=== PATIENT | female | born 1990 | race Caucasian/White ===

== ENCOUNTER 2019-03-07 11:01 | Emergency (ER) | payer BC, OTHER ==
[~2019-03-07] VITALS: Ht 157.5 cm; Wt 69.4 kg
[2019-03-07 11:07] VITALS: BP 117/75
[2019-03-07 11:08] VITALS: BP 117/75
--- NOTE | 2019-03-07 11:11 | NUR ---
TO BED 4 WITH STEADY GAIT
--- NOTE | 2019-03-07 11:13 | NUR ---
29 Y FEMALE BIB SELF C/O LEFT EAR PAIN/DECREASED HEARING, DENIES DRAINAGE X 5 DAYS. WENT TO PMD YESTERDAY AND PRESCRIBED UNKNOWN ORAL ANTIBIOTIC. PER PATIENT "NOT HELPING." "PAIN IS GETTING WORSE." TOOK TYLENOL AT 0700 WITH SOME RELIEF. PATIENT STATES SHE HAS 5 MORE DAYS OF ANTIBIOTICS. PAIN DESCRIBED "PULSATING" 04/29. +REDNESS IN L EAR USING OTOSCOPE. VSS AT THIS TIME. PT [id number]. BED IS DOWN, LOCKED, BED RIAL X 1, ERMD TO SEE PT. HX: DENIES RX: UNKNOWN ABX.
--- NOTE | 2019-03-07 11:18 | NUR ---
DR MINOR AT BEDSIDE
--- NOTE | 2019-03-07 11:27 | NUR ---
Patient discharged. PATIENT IN ER FOR APPROX 20 MIN WITH VS STABLE IN TRIAGE. VS NOT TAKEN FOR DISCHARGE. Written and verbal after care instructions given and explained. Patient alert, oriented and verbalized understanding of instructions. Ambulatory with steady gait. All questions addressed prior to discharge. ID band removed. Patient advised to follow up with PMD. Rx of LIDOCAINE HYDROCHLORIDE VISCOUS SOLUTION, CORTISPORIN OTIC SUSPENSION given. Patient educated on indication of medication including possible reaction and side effects. Opportunity to ask questions provided and answered.
== END 2019-03-07 11:27 | disposition home or self-care (01) ==
LOC: MED 11:01
DX: H60.92 Unspecified otitis externa, left ear (principal)
CPT/HCPCS: 99283

== ENCOUNTER 2022-08-31 10:59 | Emergency (ER) | payer OTHER ==
[~2022-08-31] VITALS: Ht 162.6 cm; Wt 74.8 kg
[2022-08-31 11:06] VITALS: BP 134/87
--- NOTE | 2022-08-31 12:15 | NUR ---
Patient discharged with v/s stable. Written and verbal after care instructions given and explained. Patient verbalized understanding. Ambulatory with steady gait. All questions addressed prior to discharge. Advised to follow up with PMD.
== END 2022-08-31 12:14 | disposition home or self-care (01) ==
LOC: MED 10:59
DX: S46.912A Strain of unspecified muscle, fascia and tendon at shoulder and upper arm level, left arm, initial encounter (principal); X58.XXXA Exposure to other specified factors, initial encounter; Y93.89 Activity, other specified; Y92.89 Other specified places as the place of occurrence of the external cause; Y99.8 Other external cause status
CPT/HCPCS: 99281